=== PATIENT | male | born 1955 | race Caucasian/White ===

== ENCOUNTER 2016-11-02 19:24 | Emergency (ER) ==
[2016-11-02 19:29] VITALS: BP 154/81; TEMP 98.7; BMI 27.0
--- NOTE | 2016-11-02 19:55 | ED.PDOC ---
General ED Provider: Dr. YOHANNES WILLARD Chief Complaint: Bite Stated Complaint: Patient is a 61 year old male who state he was stung by a wasp on the left wrist, Now has some swelling in the whole wrist. Denies any shortness of breath. Took some bendaryl prior to arrival. Time Seen by Physician: 19:50 Mode of Arrival: Walk-In Information Source: Patient Exam Limitations: No limitations Nursing and Triage Documentation Reviewed and Agree: Yes Review of Systems - Review Of Systems Constitutional: Reports: No symptoms Eyes: Reports: No symptoms Ears, Nose, Mouth, Throat: Reports: No symptoms Respiratory: Reports: No symptoms Cardiac: Reports: No symptoms GI: Reports: No symptoms : Reports: No symptoms Musculoskeletal: Reports: No symptoms, Joint swelling (mild left wrist swelling ) Skin: Reports: Rash Neurological: Reports: No symptoms Endocrine: Reports: No symptoms Hematologic/Lymphatic: Reports: No symptoms All Other Systems: Reviewed and Negative Past Medical History - Past Medical History Previously Healthy: Yes Endocrine: Reports: Dyslipidemia Cardiovascular: Reports: None Respiratory: Reports: None Hematological: Reports: None Gastrointestinal: Reports: None Genitourinary: Reports: None Neuro/Psych: Reports: None Musculoskeletal: Reports: None Cancer: Reports: None - Surgical History General Surgical History: Reports: Appendectomy - Family History Family History: Reports: None - Social History Smoking Status: Never smoker Hx Substance Use: No Alcohol Screening: Occasionally - Immunizations Tetanus Shot up to Date: Yes Physical Exam - Physical Exam Appearance: Well-appearing, No pain distress, Well-nourished Eyes: GREGORY, EOMI, Conjunctiva clear ENT: Ears normal, Nose normal, Oropharynx normal Respiratory: Airway patent, Breath sounds clear, Breath sounds equal, Respirations nonlabored Cardiovascular: RRR, Pulses normal, No rub, No murmur GI/: Soft, Nontender, No masses, Bowel sounds normal, No Organomegaly Musculoskeletal: Normal strength, ROM intact, No calf tenderness, Edema (mild left wrist) Skin: Warm, Dry Neurological: Sensation intact, Motor intact, Reflexes intact, Cranial nerves intact, Alert, Oriented Psychiatric: Affect appropriate, Mood appropriate Critical Care Note - Critical Care Note Total Time (mins): 0 Course - Course Vital Signs: Temp Pulse Resp BP Pulse Ox 11/02/16 19:25 98.7 F 84 20 154/81 H 95 Departure - Departure Time of Disposition: 19:57 Disposition: HOME SELF-CARE Discharge Problem: Wasp sting Instructions: Insect Bite or Sting (ED) Condition: Fair Pt referred to PMD for follow-up: Yes Additional Instructions: Take medications as prescribed Follow up with PCP in 3 days Return if worse Prescriptions: Hydroxyzine HCl 25 mg PO TID PRN #25 tablet PRN Reason: rash or itching Ibuprofen [Motrin] 600 mg PO Q6H PRN #30 tablet PRN Reason: Analgesia Methylprednisolone [Medrol Dosepak] 4 mg PO DIRECTED #1 pkg Allergies/Adverse Reactions: Allergies Penicillins Adverse Reaction (Verified 11/02/16 19:30) Home Medications: Ambulatory Orders Aspirin [Aspirin EC] 81 mg PO DAILY 11/02/16 Atorvastatin Calcium [Lipitor] 40 mg PO DAILY 11/02/16 Hydroxyzine HCl 25 mg PO TID PRN #25 tablet 11/02/16 Ibuprofen [Motrin] 600 mg PO Q6H PRN #30 tablet 11/02/16 Methylprednisolone [Medrol Dosepak] 4 mg PO DIRECTED #1 pkg 11/02/16 Disposition Discussed With: Patient, Family
== END 2016-11-02 20:05 | disposition home or self-care (01) ==
LOC: ED 19:24
DX: T63.461A Toxic effect of venom of wasps, accidental (unintentional), initial encounter (principal); R60.0 Localized edema
CPT/HCPCS: 99282